=== PATIENT | female | born 1995 | race Caucasian/White ===

== ENCOUNTER → 2016-12-31 01:43 | Emergency (ER) | payer BC ==
[~2016-12-31 01:43] MED LIST: Potassium Chlor TAB* 20 MEQ TAB.ER PO ONE
[2016-12-31 02:32] LABS: Hematocrit 35 % (35-47); Hemoglobin 11.9 g/dl (12.0-16.0); Mean Corpuscular HGB Conc 34 g/dl (31-36); Mean Corpuscular Hemoglobin 28 pg (27-31); Mean Corpuscular Volume 84 fL (80-97); Mean Platelet Volume 8 um3 (7.4-10.4); Red Blood Count 4.22 10^6/ul (4.0-5.4); Red Cell Distribution Width 14 % (10.5-15); White Blood Count 4.5 10^3/ul (3.5-10.8)
[2016-12-31 02:42] LABS: Albumin 4.6 g/dL (3.2-5.2); Calcium 9.1 mg/dL (8.6-10.3); EGFR African American 109.6 (>60); EGFR Non-African American 85.2 (>60); Globulin 2.4 g/dL (2-4); Potassium 3.2 mmol/L (3.5-5.0); Total Bilirubin 0.3 mg/dL (0.2-1.0)
--- NOTE | 2016-12-31 07:04 | ED ---
Brittanie Lunsford Emily, scribed for Yifan Fernando on 12/31/16 at 0206 . 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 - History Of Current Complaint Chief Complaint: EDSubstanceAbuse Stated Complaint: ETOH Time Seen by Provider: 12/31/16 01:51 Hx Obtained From: EMS - Allergies/Home Medications Allergies/Adverse Reactions: Allergies Allergy/AdvReac Type Severity Reaction Status Date / Time No Known Allergies Allergy Verified 12/31/16 01:47 PMH/Surg Hx/FS Hx/Imm Hx Previously Healthy: No - Unable to obtain PMHx due to level 5 caveat - ETOH intoxication Infectious Disease History: Unable to Obtain/Confirm Infectious Disease History: Denies: Traveled Outside the US in Last 30 Days Review of Systems - ROS Summary Review of Systems Summary: UNABLE TO OBTAIN ROS DUE TO LEVEL 5 CAVEAT - ETOH INTOXICATION All Other Systems Reviewed And Are Negative: No Physical Exam Triage Information Reviewed: Yes Vital Signs On Initial Exam: Initial Vitals Temp Pulse Resp BP Pulse Ox 98.5 F 101 18 115/67 97 12/31/16 01:46 12/31/16 01:46 12/31/16 01:46 12/31/16 01:46 12/31/16 01:46 Vital Signs Reviewed: Yes Appearance: Positive: Well-Appearing, No Pain Distress Skin: Positive: Warm, Skin Color Reflects Adequate Perfusion, Dry Head/Face: Positive: Normal Head/Face Inspection Eyes: Positive: EOMI, CELIA ENT: Positive: Normal ENT inspection Neck: Positive: Supple, Nontender Abdomen Description: Positive: Nontender, Soft Bowel Sounds: Positive: Present Diagnostics - Vital Signs Vital Signs Temp Pulse Resp BP Pulse Ox 12/31/16 01:46 98.5 F 101 18 115/67 97 - Laboratory Lab Results: Lab Results 12/31/16 12/31/16 Range/Units 02:15 02:15 WBC 4.5 (3.5-10.8) 10^3/ul RBC 4.22 (4.0-5.4) 10^6/ul Hgb 11.9 L (12.0-16.0) g/dl Hct 35 (35-47) % MCV 84 (80-97) fL MCH 28 (27-31) pg MCHC 34 (31-36) g/dl RDW 14 (10.5-15) % Plt Count 214 (150-450) 10^3/ul MPV 8 (7.4-10.4) um3 Neut % (Auto) 57.3 (38-83) % Lymph % (Auto) 32.0 (25-47) % [place] % (Auto) 9.2 H (1-9) % Eos % (Auto) 0.5 (0-6) % Baso % (Auto) 1.0 (0-2) % Absolute Neuts (auto) 2.6 (1.5-7.7) 10^3/ul Absolute Lymphs (auto) 1.4 (1.0-4.8) 10^3/ul Absolute Monos (auto) 0.4 (0-0.8) 10^3/ul Absolute Eos (auto) 0 (0-0.6) 10^3/ul Absolute Basos (auto) 0 (0-0.2) 10^3/ul Absolute Nucleated RBC 0 10^3/ul Nucleated RBC % 0 Sodium 139 (133-145) mmol/L Potassium 3.2 L (3.5-5.0) mmol/L Chloride 108 (101-111) mmol/L Carbon Dioxide 22 (22-32) mmol/L Anion Gap 9 (2-11) mmol/L BUN 10 (6-24) mg/dL Creatinine 0.83 (0.51-0.95) mg/dL Est GFR ( Amer) 109.6 (>60) Est GFR (Non-Af Amer) 85.2 (>60) BUN/Creatinine Ratio 12.0 (8-20) Glucose 113 H (70-100) mg/dL Calcium 9.1 (8.6-10.3) mg/dL Total Bilirubin 0.30 (0.2-1.0) mg/dL AST 17 (13-39) U/L ALT 14 (7-52) U/L Alkaline Phosphatase 32 L (34-104) U/L Total Protein 7.0 (6.4-8.9) g/dL Albumin 4.6 (3.2-5.2) g/dL Globulin 2.4 (2-4) g/dL Albumin/Globulin Ratio 1.9 (1-3) Serum Alcohol 226 H (<10) mg/dL Result Diagrams: 12/31/16 02:15 12/31/16 02:15 Lab Statement: Any lab studies that have been ordered have been reviewed, and results considered in the medical decision making process. Course/Dx - Course Assessment/Plan: Level 5 Caveat ETOH intoxication. Physical Exam Findings. Negative. Medical Decision Making. Test results with no significant abnormalities except for serum alcohol. In the ED course the patient was given fluids. Pt awaiting mental health evaluation. Sign-off to Dr. Mason - Diagnoses Provider Diagnoses: Alcohol intoxication, Depression Discharge - Discharge Plan Condition: Stable Disposition: OTHER Discharge Disposition Comment: sign out to Dr Mason The documentation as recorded by the Brittanie chandler Emily accurately reflects the service I personally performed and the decisions made by me, Yifan Fernando.
[2016-12-31 07:31] VITALS: BP 99/68
--- NOTE | 2017-01-02 09:12 | ED ---
I, Myron Odell, scribed for Camron Mason MD on 12/31/16 at 0710 . Progress - Progress Note Progress Note: Pt signed out by Dr. Fernando pending shift change. After MHE, Dr. Frost believes the pt is safe to d/c home. Dx. alcohol induced suicidal statements. The pt has therapy sessions set up with [facility]. Course/Dx - Course Course Of Treatment: The pt is hemodynamically stable, A&Ox3. - Diagnoses Provider Diagnoses: Alcohol intoxication, Depression, alcohol induced suicidal statements The documentation as recorded by the Cass chandler Edward accurately reflects the service I personally performed and the decisions made by me, Camron Mason MD.
== END ==
LOC: ED 01:43
DX: F10.129 Alcohol abuse with intoxication, unspecified (principal); Y90.7 Blood alcohol level of 200-239 mg/100 ml; F32.9 Major depressive disorder, single episode, unspecified
CPT/HCPCS: 36415; 80053; 80320; 85025; 99284; A9270-GY; G0480

== ENCOUNTER 2018-11-13 00:50 | Inpatient (IN) | payer BC ==
[2018-11-13 02:37] LABS: ABS Eosinophils 0.1 10^3/ul (0-0.6); ABS Lymphocytes 2.1 10^3/ul (1.0-4.8); ABS Monocytes 0.5 10^3/ul (0-0.8); ABS Neutrophils 4.9 10^3/ul (1.5-7.7); Eosinophil % 1.6 %; Hematocrit 33 % (35-47); Hemoglobin 10.7 g/dL (12.0-16.0); Lymphocyte % 26.8 %; Mean Corpuscular HGB Conc 33 g/dL (31-36); Mean Corpuscular Hemoglobin 26 pg (27-31); Mean Corpuscular Volume 80 fL (80-97); Mean Platelet Volume 8.2 fL (7.4-10.4); Nucleated Red Blood Cells % 0.1; Platelet Count 269 10^3/uL (150-450); Red Blood Count 4.09 10^6 /uL (3.70-4.87); Red Cell Distribution Width 14 % (10-15); White Blood Count 7.7 10^3/uL (3.5-10.8)
[2018-11-13 02:52] LABS: ALT 9 U/L (7-52); AST 13 U/L (13-39); Albumin 4.5 g/dL (3.2-5.2); Alkaline Phosphatase 37 U/L (34-104); Anion Gap 8 mmol/L (2-11); BUN/Creatinine Ratio 7.7 (8-20); Blood Urea Nitrogen 5 mg/dL (6-24); CO2 Carbon Dioxide 25 mmol/L (22-32); Calcium 8.9 mg/dL (8.6-10.3); Chloride 109 mmol/L (101-111); EGFR African American 134.4 (>60); EGFR Non-African American 111.1 (>60); Globulin 2.2 g/dL (2-4); Glucose 98 mg/dL (70-100); Potassium 3.7 mmol/L (3.5-5.0); Sodium 142 mmol/L (135-145); Total Protein 6.7 g/dL (6.4-8.9)
[2018-11-13 02:58] LABS: HCG Pregnancy < 0.60 mIU/mL
[2018-11-13 02:59] LABS: Acetaminophen < 15 mcg/mL; Alcohol 133 mg/dL (<10); Salicylate < 2.50 mg/dL (<30)
[2018-11-13 03:12] LABS: TSH (Thyroid Stimulating Horm) 1.54 mcIU/mL (0.34-5.60)
--- NOTE | 2018-11-13 04:21 | ED ---
Psychiatric Complaint - HPI Summary HPI Summary: Patient is a 23 y/o F presenting to [facility] via EMS for SI under 941 status. She states that she has struggled with "not wanting to live" for the past few years. Patient told someone about her thoughts of suicide, and this individual subsequently called EMS. Patient states that she "just did not want to go on". She denies Hx of self-harm. Patient is reluctant to talk about her thoughts of suicide further. Sleep disturbance and decreased appetite are noted. She states that she is on Bupropion. Patient notes that she does not have a counselor. LNMP was a couple of weeks ago. Patient had consumed alcohol today but denies tobacco and substance usage. Home medications and allergies are reviewed. 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 her with SI with a plan. Pts. father passed in February after SI by shotgun. Pt. reports struggling with his , with increasing thoughts of ending her own life daily. Pt. takes Bupropion BID that she reports being mostly compliant with. Had 4 drinks with friends kenroy and told her friend Antoine she was going to take her life tonight. Pt. does have a plan of hanging herself in the [place]. Tearful, calm and cooperative with staff". - History Of Current Complaint Chief Complaint: EDSuicidal Time Seen by Provider: 11/13/18 01:10 Hx Obtained From: Patient Onset/Duration: Still Present Timing: Constant Character: Depressed Aggravating Factor(s): Recent Stress Associated Signs And Symptoms: Positive: Sleep Disturbance, Appetite Change Has Suicidal: Reports: Thoughts, With A Plan - Allergies/Home Medications Allergies/Adverse Reactions: Allergies Allergy/AdvReac Type Severity Reaction Status Date / Time No Known Allergies Allergy Verified 12/31/16 01:47 PMH/Surg Hx/FS Hx/Imm Hx Sensory History: Denies: Hx Legally Blind, Hx Deafness Opthamlomology History: Denies: Hx Legally Blind EENT History: Denies: Hx Deafness Psychiatric History: Denies: Hx Eating Disorder, Hx of Violent Episodes Against Others - Immunization History Immunizations Up to Date: Yes Infectious Disease History: No Infectious Disease History: Denies: Traveled Outside the US in Last 30 Days - Family History Known Family History: Positive: Other - FMHx of suicide - Social History Alcohol Use: Occasionally Substance Use Type: Reports: None Substance Use Comment - Amount & Last Used: unknown Smoking Status (MU): Never Smoked Tobacco Review of Systems Constitutional: Other - positive - alcohol consumption Negative: Fever - on vitals, temp is 99.4 F Psychological: Other - positive - SI Positive: Depressed All Other Systems Reviewed And Are Negative: Yes Physical Exam - Summary Physical Exam Summary: General: Well-developed, Thin-appearing Female. No acute distress. HEENT: Normocephalic, Atraumatic. Eyes: Conjuctiva normal, PERRL. Ears: TMs within normal limits. Nares: (-) discharge, (-) erythema. Oropharynx: Clear, mucous membranes moist, (-) exudates. Neck: Soft, FROM, (-) lymphadenopathy, (-) thyromegaly, (-) JVD. Cardiovascular: Normal sinus rhythm, (-) murmur. Lungs: Clear to auscultation bilaterally (-) wheezes, (-) rales, (-) rhonchi. Abdomen: Soft, non-tender, non-distended, (-) organomegaly, normal bowel sounds. Back: (-) CVA tenderness Extremities: No edema. Skin: Warm, dry, (-) rash. Neuro: Alert and oriented x3, no focal deficits. Psychiatric: Sad-appearing, tearful, withdrawn, poor eye contact. Triage Information Reviewed: Yes Vital Signs On Initial Exam: Initial Vitals Temp Pulse Resp BP Pulse Ox 99.4 F 96 18 134/81 100 11/13/18 00:58 11/13/18 00:58 11/13/18 00:58 11/13/18 00:58 11/13/18 00:58 Vital Signs Reviewed: Yes Diagnostics - Vital Signs Vital Signs Temp Pulse Resp BP Pulse Ox 11/13/18 03:42 94 119/78 99 11/13/18 03:12 104 118/77 100 11/13/18 03:00 93 97 11/13/18 02:42 84 112/65 99 11/13/18 02:12 88 104/70 98 11/13/18 02:00 94 98 11/13/18 01:43 94 124/80 99 11/13/18 01:13 101 100 11/13/18 01:12 93 113/74 100 11/13/18 00:58 99.4 F 96 18 134/81 100 - Laboratory Lab Results: Lab Results 11/13/18 11/13/18 Range/Units 02:27 02:27 WBC 7.7 (3.5-10.8) 10^3/uL RBC 4.09 (3.70-4.87) 10^6 /uL Hgb 10.7 L (12.0-16.0) g/dL Hct 33 L (35-47) % MCV 80 (80-97) fL MCH 26 L (27-31) pg MCHC 33 (31-36) g/dL RDW 14 (10-15) % Plt Count 269 (150-450) 10^3/uL MPV 8.2 (7.4-10.4) fL Neut % (Auto) 64.4 % Lymph % (Auto) 26.8 % [place] % (Auto) 6.7 % Eos % (Auto) 1.6 % Baso % (Auto) 0.5 % Absolute Neuts (auto) 4.9 (1.5-7.7) 10^3/ul Absolute Lymphs (auto) 2.1 (1.0-4.8) 10^3/ul Absolute Monos (auto) 0.5 (0-0.8) 10^3/ul Absolute Eos (auto) 0.1 (0-0.6) 10^3/ul Absolute Basos (auto) 0.0 (0-0.2) 10^3/ul Absolute Nucleated RBC 0.0 10^3/ul Nucleated RBC % 0.1 Sodium 142 (135-145) mmol/L Potassium 3.7 (3.5-5.0) mmol/L Chloride 109 (101-111) mmol/L Carbon Dioxide 25 (22-32) mmol/L Anion Gap 8 (2-11) mmol/L BUN 5 L (6-24) mg/dL Creatinine 0.65 (0.51-0.95) mg/dL Est GFR ( Amer) 134.4 (>60) Est GFR (Non-Af Amer) 111.1 (>60) BUN/Creatinine Ratio 7.7 L (8-20) Glucose 98 (70-100) mg/dL Calcium 8.9 (8.6-10.3) mg/dL Total Bilirubin 0.30 (0.2-1.0) mg/dL AST 13 (13-39) U/L ALT 9 (7-52) U/L Alkaline Phosphatase 37 (34-104) U/L Total Protein 6.7 (6.4-8.9) g/dL Albumin 4.5 (3.2-5.2) g/dL Globulin 2.2 (2-4) g/dL Albumin/Globulin Ratio 2.0 (1-3) TSH 1.54 (0.34-5.60) mcIU/mL Beta HCG, Quant < 0.60 mIU/mL Salicylates < 2.50 (<30) mg/dL Acetaminophen < 15 mcg/mL Serum Alcohol 133 H (<10) mg/dL Result Diagrams: 11/13/18 02:27 11/13/18 02:27 Lab Statement: Any lab studies that have been ordered have been reviewed, and results considered in the medical decision making process. Course/Dx - Course Course Of Treatment: Patient is a 23 y/o F presenting to [facility] via EMS for SI under 941 status. She states that she has struggled with "not wanting to live" for the past few years. Patient told someone about her thoughts of suicide, and this individual subsequently called EMS. Patient states that she "just did not want to go on". She denies Hx of self-harm. Patient is reluctant to talk about her thoughts of suicide further. Sleep disturbance and decreased appetite are noted. On physical exam, patient is sad-appearing, tearful, withdrawn, poor eye contact. Bloodwork was obtained. Abnormal values include Hgb 10.7, Hct 33, MCH 26, BUN 5, BUN/creatinine ratio 7.7. Serum alcohol was 133. Beta HCG was negative. Patient was medically cleared for MHE. 0404 Patients case was reviewed by Dr. Li. Patient will be an involuntary admit to [facility] psych. - Differential Dx/Clinical Impression Provider Diagnosis: Major depressive disorder - Physician Notifications Discussed Care Of Patient With: Lakeisha Li Time Discussed With Above Provider: 04:04 Instructed by Provider To: Other - 0404 Patients case was reviewed by Dr. Li. Patient will be an involuntary admit to [facility] psych. Discharge ED - Sign-Out/Discharge Documenting (check all that apply): Patient Departure - admit Patient Received Moderate/Deep Sedation with Procedure: No - Discharge Plan Condition: Stable Disposition: PSYCHIATRIC FACILITY-[facility] - Billing Disposition and Condition Condition: STABLE Disposition: Psychiatric Facility [facility] - Attestation Statements Document Initiated by Scribe: Yes Documenting Scribe: KEVON HO Provider For Whom Jaimeeibe is Documenting (Include Credential): ELAYNE CHARLTON MD Scribe Attestation: KEVON Lunsford, scribed for ELAYNE CHARLTON MD on 11/14/18 at 2024. Scribe Documentation Reviewed: Yes Provider Attestation: The documentation as recorded by the scribKEVON funes accurately reflects the service I personally performed and the decisions made by me, ELAYNE CHARLTON MD Status of Scribe Document: Ready
[2018-11-13] MEDS ORDERED: Al Hydrox/Mg Hydrox/Simet LIQ* 30 ML UDC PO PRN (06:31)
[2018-11-13] MEDS ORDERED: Acetaminophen TAB* 325 MG PO PRN (06:31)
[2018-11-13] MEDS ORDERED: chlorproMAZINE TAB* 50 MG Q6H PRN AGITATION PO (06:32)
[2018-11-13] MEDS: Vitamin THERAPEUTIC TAB PO SCH (10:34)
[2018-11-13] MEDS ORDERED: buPROPion SR TAB.SR* 100 MG PO ONE (14:01)
[2018-11-13] MEDS: busPIRone TAB* 10 MG PO SCH ×2 (14:29→21:00)
[2018-11-13 16:20] LABS: Urine Benzodiazepine Screen None Detected (None Detect); Urine Opiates Screen None Detected (None Detect)
--- NOTE | 2018-11-13 16:42 | HP ---
HISTORY AND PHYSICAL: DATE OF ADMISSION: 11/13/18 SUPERVISING PSYCHIATRIST: Dr. Qamar Walker.* (DICTATED BY HAMILTON PERALES NP) JUSTIFICATION FOR ADMISSION: The patient presented to the emergency department via police after telling her friend that she did not want to live and had thoughts of either hanging or shooting herself. The patient merits hospitalization for immediate safety and stabilization. 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 Her friend had called the police because she reached out to her friend saying that she had thoughts of not wanting to live and she has access to firearms at her step dad' s at home with whom she lives. The patient has had a difficult time since approximately a year ago. She had to move back in with her stepdad after the family home was taken over by her uncle and in February of last year, her father completed suicide via gunshot wound. Since that time, the patient has had thoughts of suicide, but reports that she would never do it because she does not want her family to go through all this again. She reports an onset of suicidal ideation at age 11. She denies history of self-harm or suicide attempts. Interestingly, the patient reports that at about the same time of the onset of suicidal ideation, she missed many days of school in 9th grade because she was physically ill with migraines and malaise. Her parents took her out of school and allowed her to finish online, which she continued to do so until finishing 12th grade. Another stressor in the last year was she started dating a boyfriend approximately 4 months ago and they dated for about 3 months. She states that she broke up with him about a month ago because he was too controlling. The patient reports consistently depressed mood. She endorses guilt, hopelessness, and helplessness. She reports that she often has thoughts of not wanting to leave. She reports inconsistent sleep patterns. She reports decrease in appetite. She denies a history of eating disorder, OCD, or manic symptoms. She denies auditory or visual hallucinations. PAST PSYCHIATRIC HISTORY: The patient has been evaluated in 2 emergency rooms approximately 2 years ago; the [facility] for panic attacks and [facility] for alcohol intoxication in December 2016. She denies ever being psychiatrically hospitalized. She reports going to [facility]] a year or so ago for about 6 months. Psychiatric medication trials include sertraline and citalopram, which caused migraines; mirtazapine which caused daytime sedation. She was currently prescribed buspirone 5 mg b.i.d. through her primary care provider, she reports taking this for about the last month. She reports she has difficulty with medication adherence due to forgetfulness. TRAUMA ABUSE HISTORY: The patient's father suicided in February 2018. She reports many of the adults in her life drink alcoholically and are mean when they are drunk. She denies other abuse. PAST MEDICAL HISTORY: Migraine headaches, stomach issues, G1, para 1 with elected . She denies history of head injury or concussions. PAST SURGICAL HISTORY: She denies surgical history. [facility] [place] CURRENT MEDICATIONS: Buspirone 5 mg p.o. b.i.d. I checked I-STOP and there are no controlled prescriptions. 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 ALLERGIES: No known drug allergies. Height 5 feet 2 inches, weight 105 pounds. LMP 2 weeks ago. She has an IUD, which was placed in May of this year. FAMILY PSYCHIATRIC HISTORY: Father with alcoholism, depression and completed suicide. Stepfather with alcoholism. Mother with alcoholism. SOCIAL HISTORY: Yany is the youngest of 2 children by her parents who when she was approximately 4. Dad remarried and moved to [place]. Mother remarried and has since again. She is currently engaged to another man and living in [place]. The patient's sister is 29 years old, unemployed and lives in [place]. The patient identifies as heterosexual and identifies as Roman Catholic. She denies need for STD testing. She denies offer of visit with Diffusion Furnace Operator at this time. SUBSTANCE USE: The patient reports drinking approximately twice a week. She states that she drinks about 4 to 5 drinks at a time. She reports that she sometimes gets a light buzz or drinks all night and does not feel it. She reports trying marijuana and cigarettes in the past, but denies actively using these. REVIEW OF SYSTEMS: Constitutional: Negative. No fever, chills, or fatigue. ENT: Negative. Cardiovascular: Negative. Denies chest pain or palpitations. Respiratory: Negative. Denies shortness of breath or cough. Genitourinary: Negative. Musculoskeletal: Negative. Neurological: Negative. PHYSICAL EXAMINATION GENERAL: The patient is well appearing and in no apparent distress. VITAL SIGNS: T 99.6, P 95, respiration rate 15, O2 saturation 100%, BP 117/68. HEENT: Head and Face: Normal head and face inspection. Eyes: Positive EOMI. PERRL. Conjunctivae clear. NECK: Supple. Full ROM. Trachea midline. RESPIRATORY: Lung sounds clear to auscultation, breath sounds present. CARDIOVASCULAR: Heart RRR. Pulses are symmetrical in both upper and lower extremities. MUSCULOSKELETAL: Normal strength. ROM intact. NEUROLOGICAL: Normal sensory and motor intact. Alert and oriented x3 with normal gait. Cerebellar function intact. SKIN: Warm and dry. Color reflects adequate perfusion. DIAGNOSTIC STUDIES/LAB DATA: CBC shows H and H low at 10.7 and 33. Chemistry : BUN 5, BUN-creatinine ratio 7.7, TSH normal at 1.54, hCG negative. Toxicology , alcohol level of 133 upon arrival. We are awaiting a urine specimen for urinalysis and urine drug screen. MENTAL STATUS EXAM: Yany is a 23-year-old white female, who appears younger than stated age. She is casually dressed in her own clothing. She is sleeping upon approach, moderately easy to rouse. She is cooperative with interview, answers questions fully and appears to be a good historian. She is alert and oriented x3. Eye contact is fair. Speech is soft, articulate, and spontaneous. Concentration is poor. Memory 3/3. Mood is dysphoric with tearful affect. Mild psychomotor retardation noted. Thought process is circumstantial. Thought content is positive for passive wish. She denies auditory or visual hallucinations or delusions. Insight and judgment are poor in that she is passively accepting hospitalization. Fund of knowledge is limited. She appears to have average intellect by virtue of vocabulary. DIAGNOSES: 1. Major depressive disorder, moderate, recurrent. 2. Bereavement 3. Alcohol use disorder. ASSESSMENT: Yany is a 23-year-old female with no current psychiatric treatment who presented to the emergency department via police when her friend phoned due to concerns of suicidal ideation with plans and means. She has had a very difficult year in that there has been family conflict regarding her grandmother's estate and her father completed suicide around [place] time last year. The patient has been prescribed medications through primary care and reports untoward effects from these, specifically SSRIs. She is currently prescribed buspirone and reports poor adherence due to forgetfulness. She appears to minimize alcohol use and is genetically predispositioned for alcoholism. PLAN: The patient is admitted to adult behavioral services unit on involuntary status. Her code status is full. She is placed on 15-minute checks for her safety. She is encouraged to participate in supportive milieu, individual sessions with staff and psychoeducational groups. The patient has given informed consent to trial bupropion and to increase buspirone dose. Estimated length of stay is 3 to 5 days. Discharge planning will include family involvement and referrals to outpatient mental health providers. HAMILTON PERALES NP [id number]/CPS #: [id number] JOSHUA
[2018-11-14 08:53] LABS: HDL Cholesterol 74.2 mg/dL
[2018-11-14] MEDS: Vitamin THERAPEUTIC TAB PO SCH (09:46)
[2018-11-14] MEDS: busPIRone TAB* 10 MG PO SCH ×2 (09:46→20:32)
[2018-11-14] MEDS ORDERED: LORazepam TAB(*) 1 MG PO SCH (11:00)
--- NOTE | 2018-11-14 11:32 | PN ---
BSU: Group Therapy Note - Service Type Service Type: 27428 Group Psychotherapy - Cognitive Behavioral Group Therapy ( CBT):Patient was attentive and participatory in CBT programming this morning, and remained in good behavioral control. Patient expressed positive insights regarding relevant treatment interventions and goals.
[2018-11-14] MEDS: Thiamine TAB* 100 MG TAB PO SCH (12:35)
[2018-11-14] MEDS: BuPROPion XL* 150 MG TAB.XL PO SCH (12:36)
[2018-11-14] MEDS: Folic Acid TAB* 1 MG PO SCH (12:36)
--- NOTE | 2018-11-14 14:24 | PN ---
Subjective - Subjective Date of Service: 11/14/18 Service Type: 17981 Hosp care 25 min moderate complexity Subjective: Patient presents as euthymic with bright affect. She reports improved sleep without the need of a sleep aide. We discuss risks of alcohol withdrawal and need for WAM protocol. She is participating moreso in unit programming. Objective - General Observations Appearance: Well Groomed Stature: Thin Posture: WNL Eye Contact: Average Behavior/Activity: WNL - Interaction Observations Attitude Towards Examiner: Cooperative Stated Mood: Euthymic Affect: Bright Speech Pattern/Tone: Clear, Appropriate, Normal Volume Thought Process: Coherent, Goal Directed Perception: WNL Thought Content: Depressive Hallucination Type: Denies Delusion Type: Denies - Cognitive Function Orientation: A&O x 4 Level of Consciousness: Alert Cognition: WNL Estimated Intelligence: Normal Insight: WNL Judgment Within Normal Limits: Yes Ability to Make Reasonable Decisions: Mildly Impaired - Medication Compliance Cooperative with Inpatient Medication Regimen: Yes - Group Participation Participates in Group Activities: Yes Assessment - Assessment Merits Inpatient Hospitalization: For Immediate Safety, For Stabilization Inpatient DSM-V Dx: F33.1 Clinical Impression: 23yo white female with no current psychiatric treatment via ED via police when her friend phoned due to concerns of suicidal ideation with plans and means. She has had a very difficult year, including her father completing suicide in February. She merits hospitalization for immediate safety and stabilization. Plan - Plan Treatment Plan: Name: MARIN HENSLEY Birthdate: 1995 [id number] continue acute intensive psychiatric treatment. may decrease to q30min. start WAM protocol and buproprion XL 150mg po daily, continue other meds as ordered. Continued Medication Management: Start Medication Medications: Current Medications Acetaminophen (Tylenol Tab*) 650 mg PO Q4H PRN PRN Reason: PAIN or TEMP > 101 F Al Hydrox/Mg Hydrox/Simethicone (Maalox Plus*) 30 ml PO Q4H PRN PRN Reason: INDIGESTION Bupropion HCl (Wellbutrin Xl *) 150 mg PO DAILY [facility] Last Admin: 11/14/18 12:36 Dose: 150 mg Buspirone HCl (Buspar Tab*) 10 mg PO BID [facility] Last Admin: 11/14/18 09:46 Dose: 10 mg Diphenhydramine HCl (Benadryl Po*) 50 mg PO Q6H PRN PRN Reason: ANXIETY/INSOMNIA Folic Acid (Folvite Tab*) 1 mg PO DAILY [facility] Last Admin: 11/14/18 12:36 Dose: 1 mg Lorazepam (Ativan Tab(*)) 0 - 6 mg PO .PER [facility] PROTOCOL ATIF; Protocol Multivitamins (Theragran Tab*) 1 tab PO DAILY [facility] Last Admin: 11/14/18 09:46 Dose: 1 tab Thiamine HCl (Vitamin B-1 Tab*) 100 mg PO DAILY [facility] Last Admin: 11/14/18 12:35 Dose: 100 mg - Discharge Plan Discharge Plan: Inpatient Hospitalization
[2018-11-15 08:48] VITALS: BP 111/72
[2018-11-15] MEDS: Folic Acid TAB* 1 MG PO SCH (09:05)
[2018-11-15] MEDS: Vitamin THERAPEUTIC TAB PO SCH (09:05)
[2018-11-15] MEDS: Thiamine TAB* 100 MG TAB PO SCH (09:05)
[2018-11-15] MEDS: BuPROPion XL* 150 MG TAB.XL PO SCH (09:06)
[2018-11-15] MEDS: busPIRone TAB* 10 MG PO SCH (09:06)
--- NOTE | 2018-11-15 10:03 | DCNOTE ---
Subjective - Subjective Service Types: 57651 Hosp DC Day Mgmt simple under 30 min Discharge Date: 11/15/18 Subjective: Patient did not score on WAM protocol. She reports improved mood and sleep. She states appreciation for treatment received and that it was good "to get away from it all for a few days." She is agreeable to outpatient recommendations. She denies SI or passive wish. She reports eagerness to be discharged in order to return to work today. Objective - General Observations Appearance: Well Groomed Stature: Thin Posture: WNL Eye Contact: Average Behavior/Activity: WNL - Interaction Observations Attitude Towards Examiner: Cooperative Stated Mood: Euthymic Affect: Full Speech Pattern/Tone: Appropriate, Normal Volume Thought Process: Coherent, Goal Directed Perception: WNL Thought Content: WNL Hallucination Type: Denies Delusion Type: Denies - Cognitive Function Orientation: A&O x 4 Level of Consciousness: Alert Cognition: WNL Estimated Intelligence: Normal Insight: WNL Judgment Within Normal Limits: Yes - Medication Compliance Cooperative with Inpatient Medication Regimen: Yes - Group Participation Participates in Group Activities: Yes DC Assessment - Assessment Clinical Impression: 23yo white female with no current psychiatric treatment via ED via police when her friend phoned due to concerns of suicidal ideation with plans and means. She has had a very difficult year, including her father completing suicide in February. She has successfully detoxed from alcohol and stabilized in this setting. She has tolerated medication changes and agrees to follow up with recommended resources. Merits Inpatient Hospitalization: No Clear for Discharge: Adequate Clinical Respons, Acceptable Safety Profile Inpatient DSM-V Dx: F33.1 Discharge Planning - Discharge Planning Discharge Plan: Outpatient Follow Up Outpatient Program: [facility] Recommendations for Continuing Care: Medication Management, Psychotherapy, Primary Care Followup Medications: Current Medications Bupropion HCl (Wellbutrin Xl *) 150 mg PO DAILY [facility] Last Admin: 11/15/18 09:06 Dose: 150 mg Buspirone HCl (Buspar Tab*) 10 mg PO BID [facility] Last Admin: 11/15/18 09:06 Dose: 10 mg Discharge Planning: Prescriptions provided for discharge [x] Yes [] No Follow up care details as per social work arrangements: [facility] Patient response to discharge plan: [x] eager for discharge [x] agreeable with discharge plan [] ambivalent about discharge [] disagrees with discharge today
--- NOTE | 2018-11-15 11:42 | PN ---
BSU: Group Therapy Note - Service Type Service Type: 19790 Group Psychotherapy - Cognitive Behavioral Group Therapy ( CBT):Patient was attentive and participatory in CBT programming this morning, and remained in good behavioral control. Patient expressed positive insights regarding relevant treatment interventions and goals.
--- NOTE | 2018-11-18 23:26 | DS ---
CC: [facility]; [facility] * DISCHARGE SUMMARY: DATE OF ADMISSION: 11/13/18 DATE OF DISCHARGE: 11/15/18 SUPERVISING PSYCHIATRIST: Dr. Qamar Walker.* (DICTATED BY HAMILTON PERALES NP) DISCHARGE DIAGNOSES: 1. Major depressive disorder, bereavement. 2. Alcohol use disorder. CONDITION AT THE TIME OF DISCHARGE: Improved. The patient is euthymic with bright affect. She has not scored on WAM protocol. She reports improved mood and sleep. She states appreciation for treatment received and that it was good to "get away from it all for a few days." She is agreeable to outpatient recommendations. She denied suicidal ideations or passive wish. She reports eagerness to be discharged in order to return to work today, 11/15/18. The patient is discharged to home. MENTAL STATUS EXAM: The patient is well groomed with thin frame, normal posture. She has good eye contact. She is cooperative and pleasant. No psychomotor abnormal activity noted. She reports her mood is "good." Speech is appropriate and normal volume. Thought process is coherent and goal directed. Thought content is negative for suicidal ideation or passive wish. The patient denies auditory hallucinations or visual hallucinations. There are no perceptual disturbances noted. She is alert and oriented x3. Eye contact is good. Concentration good. Memory is 3/3. Fund of knowledge is excellent. INSTRUCTIONS GIVEN TO THE PATIENT: A. Medications: 1. Bupropion XL 150 mg p.o. daily. 2. Buspirone 10 mg p.o. b.i.d. The above were electronically prescribed to [facility] in [place]. B. Diet: Regular. C. Activity: Ambulation as tolerated. Tobacco cessation is not applicable. There are no pending labs or diagnostic studies. D. Followup care: The patient was given followup appointments to [facility] and [facility]. She was given resources for [facility] and Hospice for bereavement. E. Substance use followup: The patient declined offer of referral for substance use treatment. HOSPITAL COURSE: Part A: Reason for Admission: The patient presented to the emergency department via police after telling her friend that she did not want to live and had thoughts of either hanging or shooting herself. HPI: Yany is a 23-year-old white female, single, domiciled, employed part- time with no prior inpatient hospitalizations, who presented to the emergency department via law enforcement. Her friend had called the police because she reached out to her friend saying that she had thoughts of not wanting to live and has access to firearms at her stepdad's home where she lives. The patient has had a difficult time since approximately a year ago. She had to move back in with her stepdad after the family home was taken over by her uncle and in February of last year, her father completed suicide via gunshot. Since that time, the patient has had thoughts of suicide, but reports she would never do it because she does not want her family to go through all this again. She reports an onset of suicidal ideation at age 11. She denies history of self- harm or suicide attempts. Interestingly, the patient reports that at about the same time of the onset of suicidal ideation, she missed many days of school in the 9th grade because she was physically ill with migraines and malaise. Her parents took her out of school and allowed her to finish online, which she continued to do so until finishing 12th grade. Another stressor in the last year was she started dating a boyfriend approximately 4 months ago and they dated for about 3 months. She states that she broke up with him about a month ago because he was too controlling. The patient reports consistently depressed mood. She endorses guilt, hopelessness, and helplessness. She reports that she often has thoughts of not wanting to live. She reports inconsistent sleep patterns. She reports a decrease in appetite. She denies a history of eating disorder, OCD, or manic symptoms. She denies auditory or visual hallucinations. Substance use: The patient reports drinking approximately twice a week. She states she drinks about 4 to 5 drinks at a time. She reports she sometimes get a light buzz or drinks all night and does not feel it. She is likely minimizing alcohol use. Part B: Psychiatric Treatment Rendered: The patient was admitted to adult behavioral services unit on involuntary status. Code status was full. She was placed on 15-minute checks for safety. This was decreased to 30-minute observation. She was seclusive most of the first day was increasingly interactive. The second day we placed her on [facility] protocol to monitor for alcohol DTs, but she did not score and denied cravings or withdrawal effects. She tolerated increase of buspirone to 10 mg twice a day and in addition of Wellbutrin XL of 150 mg daily. The patient was decreased to 30-minute observation and allowed staff pass. We completed a SAFE Act and the patient's stepfather was notified of the patient's remarks of using firearms. He reported that he was planning to lock the firearms. On the day of discharge, the patient reported readiness for discharge. She denied suicidal ideation. She stated that she wants to be discharged in order to attend work. Due to obligation to treat in least restrictive setting, discharge was agreed upon by treatment team. The patient agreed to follow through with recommended referrals. HAMILTON PERALES NP [id number]/CPS #: [id number]
== END 2018-11-15 11:45 | disposition home or self-care (01) | DRG 751 ==
LOC: ED 00:50 → BSU 03:57
PROVIDERS: ADMIT Psychiatry & Neurology Psychiatry; ATTEND Psychiatry & Neurology Psychiatry
PROC: GZHZZZZ Group Psychotherapy (ICD-10-PCS; principal; 2018-11-14)
DX: F33.1 Major depressive disorder, recurrent, moderate (principal); R45.851 Suicidal ideations; Y90.6 Blood alcohol level of 120-199 mg/100 ml; G43.909 Migraine, unspecified, not intractable, without status migrainosus; Z81.8 Family history of other mental and behavioral disorders; Z63.4 Disappearance and death of family member; Z81.1 Family history of alcohol abuse and dependence; Z72.89 Other problems related to lifestyle; Z91.14 Patient's other noncompliance with medication regimen
CPT/HCPCS: 36415; 80053; 80061; 80307; 80320; 80329; 83036; 84443; 84702; 85025; 90853; 99222; 99232; 99238; 99285; A9270-GY; G0480